=== PATIENT | female | born 1985 | race Caucasian/White ===

== ENCOUNTER 2018-01-03 22:25 | Inpatient (IN) | payer BC, SELFPAY ==
[2018-01-03 23:32] LABS: Amnisure Test RUPTURE DETECTED (No Rupture)
[2018-01-03 23:33] LABS: Amnisure Internal Control QC ACCEPTABLE (ACCEPTABLE)
--- NOTE | 2018-01-03 23:35 | ULT ---
LIMITED OB ULTRASOUND: HISTORY: A 32-year-old female with a history of a 22 week with possible cervical incompetence. FINDINGS: This is an incomplete examination. the cervix, as well as the amniotic fluid are evaluated. The amn iotic fluid index equals 12.4%. The cervical length approximates 3 cm. IMPRESSION: Cervical length 3 cm. Amniotic fluid index 12.4 cm. POS: [facility]
[2018-01-03 23:38] VITALS: BMI 27.2
[2018-01-04] MEDS ORDERED: Ampicillin 2 GM in Sodium Chloride 0.9% 100 ML IVPB SCH ×2 (00:12→09:00)
[2018-01-04] MEDS ORDERED: Promethazine HCl 25 MG/ML VIAL IM PRN (00:12)
[2018-01-04] MEDS ORDERED: Erythromycin 250 MG in Sodium Chloride 0.9% 250 ML 250 ML IVPB SCH (00:12)
[2018-01-04] MEDS ORDERED: Zolpidem Tartrate 5 MG TAB PO PRN (00:12)
[2018-01-04] MEDS ORDERED: Acetaminophen 325 MG TAB PO PRN (00:12)
[2018-01-04] MEDS ORDERED: Azithromycin 250 MG TAB PO SCH ×2 (00:45→03:15)
--- NOTE | 2018-01-04 00:55 | HP ---
REASON FOR ADMISSION: 22-week gestation with probable pre-labor rupture of membranes. HISTORY OF PRESENT ILLNESS: Ms. Hanna is a 32-year-old 1, para 0 at 22 weeks today who pres ents with a report of gush of fluid earlier in the evening. She has not had continued leakage of flu id. Of note, the patient has been noted to have a beaking cervix. Has been followed by [place] [facility]. Her cervix is 3 cm long and she was placed on Crinone gel. She reports an active fetus. OBSTETRIC AND GYNECOLOGIC HISTORY: No history of cervical surgery. 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 PAST MEDICAL HISTORY: None. PAST SURGICAL HISTORY: Breast augmentation. ALLERGIES: Denies. MEDICATIONS: vitamin and Crinone gel. SOCIAL HISTORY: Denies tobacco, alcohol, or drug abuse. FAMILY HISTORY: Noncontributory. REVIEW OF SYSTEMS: Noncontributory. PHYSICAL EXAMINATION: GENERAL: White female in no acute distress. VITAL SIGNS: Temperature 97.8, respirations 18, blood pressure 118/72. HEENT: Within normal limits. LUNGS: Clear to auscultation bilaterally. HEART: Regular rate and rhythm. ABDOMEN: Soft, nontender. Fundal height 22 cm. FHTs 130s to 140s. PELVIC: Vulva without lesions. Vagina, the patient initially had a large amount of progesterone gel carrier in the vagina. This was swabbed off. There was no telescoping of membranes. No fluid coul d be expressed with the patient coughing or Valsalva. It did look slightly moist in the external cer vical os. AmniSure was collected from this location. Digitally, the cervix was noted to be closed, but soft. EXTREMITIES: Without clubbing, cyanosis, or edema. Ultrasound revealed a cervix approximately 3 cm in length with amniotic fluid index of 12.4. Transve rse presentation was noted. AmniSure is positive for rupture of membranes. All other labs are pendi ng. IMPRESSION: 22-week and 1-day previable with rupture of membranes with shortening of cervi x, have not been followed for approximately the past month. PLAN: Discussed with the patient and Dr. Zapata options and current recommendations. Plan would be, 1. Admission with serial temperatures, FHTs, and every two-day ultrasounds for amniotic fluid along with pad counts. 2. Considering ACOG's current position on antibiotics and previable prelabor rupture of membranes, w chary will start the patient on ampicillin and erythromycin IV for 48 hours and then switch to amoxicilli n and erythromycin for another 5 days. 3. No recommendation for corticosteroids or magnesium sulfate for neuro protection at this time. 4. Considering that there is not significant vaginal discharge concerning for high bacteria counts s uch as what would be seen with bacterial vaginosis and no obvious leaking of fluid, I think that cont inuing the Crinone 8% gel is not unreasonable. The patient has her own supply. We will continue margarito t nightly during hospitalization as it may help to maintain cervical collagen structure if rupture of membrane reseals. 5. Plan on keeping the patient in the hospital at least for 23 weeks and we will discuss with Matern al Medicine in the intervening time as to whether or not transfer for higher level of care at 2 3 weeks would be justified. 6. We have discussed with the patient the possibility of false positive AmniSure. While the sensiti vity and specificity of AmniSure is high, there are also literatures showing significant false positi ves in patients with labor at or near term. How this translates to positive results at 22 weeks' ges tation is unknown.
[2018-01-04 02:18] LABS: #Basophils 0.1 thou/uL (0.0-0.2); #Eosinphils 0.1 thou/uL (0.0-0.7); #Lymphocytes 2.4 thou/uL (1.20-3.40); #Monocytes 0.6 thou/uL (0.11-0.59); #Neutrophils 6.5 thou/uL (1.40-6.50); %Lymphocytes 24.3 % (21.0-51.0); %Monocytes 6.4 % (0.0-10.0); %Neutrophils 67.3 % (42.0-75.0); Hemoglobin 12.9 g/dL (12.0-16.0); Mean Corpuscular HGB CONC 33.3 g/dL (32.0-36.0); Mean Corpuscular Hemoglobin 31.3 pg (27.0-31.0); Mean Corpuscular Volume 94.1 fl (81.0-99.0); Mean Platelet Volume 7.1 fL (7.4-10.4); Platelet Count 279 thou/uL (130-400); RBC Distribution Width 11.5 % (11.5-14.5); Red Blood Cell (RBC) Count 4.11 mill/uL (4.20-5.40); White Blood Cell (WBC) Count 9.7 thou/uL (4.8-10.8)
[2018-01-04 02:54] LABS: HBSAg Index 0.15 S/CO (0-0.99); Hep B Surf Ag Non-Reactive S/CO (NonReactive)
[2018-01-04] MEDS: Ampicillin 2 GM in Sodium Chloride 0.9% 100 ML IVPB SCH ×4 (03:42→20:41)
[2018-01-04 05:09] LABS: Syphilis Antibody Nonreactive (Nonreactive); Syphilis Antibody Index 0.04 S/CO (<1.00 Non-Reactive)
--- NOTE | 2018-01-04 07:38 | PRG ---
DATE OF SERVICE: 01/04/2018 TIME OF SERVICE: 0700 HISTORY OF PRESENT ILLNESS: The patient subjectively complains only of a small amount of fluid that was leaked on a pad and shown to the nurse. OBJECTIVE EXAMINATION: VITAL SIGNS: Temperature 97.9, pulse 67, respirations 16, blood pressure 106/66. HEENT: Within normal limits. LUNGS: Clear to auscultation bilaterally. HEART: Regular rate and rhythm. ABDOMEN: Soft and nontender. FHTs are 150s. PELVIC: Vulva is without lesions. No obvious vaginal discharge or bleeding noted. EXTREMITIES: Without clubbing, cyanosis or edema. IMPRESSION: PT ROM at 22 and 1 weeks gestation. PLAN: Prophylactic antibiotics for latency with PT ROM. Continue hospital observation, serial ultra sounds and continue progesterone. We will repeat sono for EFW and NICO on 01/05/2018. We will contin ue progesterone suppositories at this time and discuss progesterone, antibiotics, and other therapy a s well as possible transfer at 23 weeks with [facility] maternal medicine today. We will have patient seen by Neonatology today as well too.
[2018-01-04] MEDS: Docusate 100 MG CAP PO SCH ×2 (08:34→20:41)
--- NOTE | 2018-01-04 13:24 | PRG ---
DATE OF SERVICE: 01/04/2018 TIME OF SERVICE: 1300 Update for conversation and treatment plan after discussing with Maternal Medicine. I spoke on telephone with Dr. Radha Riley at [facility] about the patient's diagnos is and care plan. Dr. Riley felt our current care plan was reasonable. She felt that the patient would be also well served by allowing for discharge home in the interval between previability and vi ability after receiving her initial 48 hours of IV antibiotics. I discussed this with the patient. The patient was very comfortable with this. Dr. Riley also agreed with the patient being admitted to [facility] at 23 weeks gestation. The plan will be to discharge the patient home on morning 01/06/2018 and continuing her oral antibiotics through the weekend. We will readmit the patient on Wednesday01/10/2018 and plan transfer at 23 weeks gestation to [facility] secondary to prolonged rupture of membranes. We w ill discuss this change in care plan with OB Hospitalist that is on today, Dr. Samano, as well as wi Dr. Viktoriya Zapata.
[2018-01-05] MEDS: Ampicillin 2 GM in Sodium Chloride 0.9% 100 ML IVPB SCH ×4 (03:51→20:46)
--- NOTE | 2018-01-05 09:27 | ULT ---
OBSTETRIC SONOGRAM COMPLETE: HISTORY: Premature rupture of membranes. Incompetent cervix. COMPARISON: 01/03/18. FINDINGS: Multiple transabdominal sonographic views of the gravid uterus show a single intrauterine gestation i n transverse presentation with head to the maternal left. Cervix is 4.1 cm length with fluid b ulging into the cervical canal. Grade I placenta is anterior. Four-chamber heart shows motion at 15 7 b.p.m. Three-vessel cord shows a normal insertion. No gross intracranial abnormalities are demons trated. Amniotic fluid index is 11.0. Measurements are as follows: Biparietal diameter 22 weeks 0 days Head circumference 22 weeks 5 days Abdominal circumference 22 weeks 5 days Femur length 22 weeks 1 day Hadlock percentile is 53%. Estimated weight 1 pound 2 ounces (507 grams). IMPRESSION: 1. Single viable intrauterine gestation with estimated gestational age based on today's sonogram of 22 weeks 3 days. 2. Amniotic fluid index is 11.0. 3. Cervical length is within normal limits, although fluid is seen to bulge into the cervical canal. POS: [facility]
--- NOTE | 2018-01-05 10:47 | PDOC.EVN ---
Event Note - Event Note Event Note: 01/05/18 @ 10:30-10:45 Location: Room 304 OBGYN inbound call center representative 22 weeks 3 days S - Doing well, resting in bed O - Vitals: afibrile, pulse 70's, bp 90/50's, Ultrasound this morning = + cardiac motion, normal NL cervical length, fluid 11 cm PE: in general: lying in bed, no acute distress. Pelvic exam deferred. A - 22 weeks and 3 days suspected pprom. Currently on IV amp, status post zmax oral x1. P - detailed information given to her regarding EGA and plan of care. Using a due date of 05/09/18. Switch to oral antibiotics 01/06/18 and send home 01/06/18 on continued antibiotics. Will start steroids at 23 weeks. It is possible to have in patient observation or out-patient follow-up based on what the condition looks like at that time. Has mfm appointment.
[2018-01-05] MEDS: Docusate 100 MG CAP PO SCH ×2 (10:49→20:47)
--- NOTE | 2018-01-05 14:11 | PDOC.EVN ---
Event Note - Event Note Event Note: @1400: Asked to review with the patient's the plan of care. Bedside visit done from [id number]. Q&A done.
--- NOTE | 2018-01-05 17:44 | PDOC.EVN ---
Event Note - Event Note Event Note: PATIENT WOULD LIKE SOMETHING PROPHYLACTICALLY FOR VAGINAL YEAST INFECTION SHE WILL BE ON PROLONGED (7 DAYS) ANTIBIOTICS. Diflucan has warning due to QT interval with Zmax. I have ordered miconazole cream to vagina PRN only if needed.
[2018-01-05] MEDS: Miconazole 2% Cream 30 GM TUBE TOP SCH (20:48)
[2018-01-06] MEDS ORDERED: Erythromycin Base 250 MG TAB PO SCH (06:00)
--- NOTE | 2018-01-06 06:21 | PDOC.EVN ---
Event Note - Event Note Event Note: DISCHARGE NOTE Location: Room 304 Admission: 01/03/18 Discharge Date: 01/06/18 DX: 22-23 week gestation Suspected pre-labor ROM Course: This patient sees Dr Benny AlbertsViktoriya) for care. She presented with Dr Lambert on 01/04 with suspected PPROM. Amnisure was positive. Exam limited by use of progesterone vaginally. Cervical length on admit was over 3 cm with NICO of 11- 12. Repeat sono for NICO was completed 01/05 with NICO stable at 11 and normal cervical length above 4. She was started on IV amp and Zmax (out of Erythro). The original plan was for discharge on Thrusday 01/06 with outpatient oral medication (amoxcillin) for 5 days and a redose x1 of Zmax prior to her discharge. There was no evidence of PTL during her stay and she remained afebrile. Follow up: She will return at 23 weeks and 0 days (approx wednesday) fo steroids. If cervical length remains above 3cm with normal NICO, lthere is no indication for transfer to [place] as no care in management would occur. Home with limited activity. No sexual activity (vaginal intercourse). Details given to her by me. Patient seen on 01/06/18 prior to discharge. Vitals reviewed...afebrile. Normotensive. No VB. No Contractions.
[2018-01-06] MEDS ORDERED: Azithromycin 250 MG TAB PO SCH (07:00)
[2018-01-06] MEDS: Docusate 100 MG CAP PO SCH (08:16)
[2018-01-06] MEDS: Miconazole 2% Cream 30 GM TUBE TOP SCH (08:17)
[2018-01-06 08:54] VITALS: TEMP 97.8
[2018-01-06] MEDS ORDERED: AMOXicillin 250 MG CAP PO SCH (09:00)
[2018-01-06 09:34] VITALS: BP 107/58
[2018-01-09] MEDS ORDERED: Azithromycin 250 MG TAB PO SCH (09:00)
== END 2018-01-06 09:20 | disposition home or self-care (01) | DRG 781 ==
LOC: L&D/OP 22:25 → L&D 23:47 → 3SE 01-04 02:09
PROVIDERS: ADMIT Obstetrics & Gynecology; ATTEND Family Medicine
DX: O42.912 Preterm premature rupture of membranes, unspecified as to length of time between rupture and onset of labor, second trimester (principal); O98.812 Other maternal infectious and parasitic diseases complicating pregnancy, second trimester; Z3A.22 22 weeks gestation of pregnancy; B37.3 Candidiasis of vulva and vagina
CPT/HCPCS: 76805; 76815; 84112; 85025; 86780; 87340; 99285; A4216; J0290; J1364; J7050

== ENCOUNTER 2018-01-10 13:59 | Day surgery (SDC) | payer BC ==
[2018-01-10 14:41] VITALS: BMI 26.9
[2018-01-10 14:49] VITALS: BP 116/70; TEMP 98.4
== END 2018-01-10 17:10 | disposition home or self-care (01) ==
LOC: L&D/OP 13:59
PROVIDERS: ATTEND Family Medicine
DX: O26.872 Cervical shortening, second trimester; Z98.890 Other specified postprocedural states; O42.912 Preterm premature rupture of membranes, unspecified as to length of time between rupture and onset of labor, second trimester; Z3A.22 22 weeks gestation of pregnancy
CPT/HCPCS: 76816; 99282

== ENCOUNTER 2018-04-17 01:35 | Inpatient (IN) | payer BC ==
[2018-04-17 02:14] VITALS: BMI 32.1
[2018-04-17 02:35] LABS: Amnisure Test RUPTURE DETECTED (No Rupture)
[2018-04-17 02:39] LABS: Amnisure Internal Control QC ACCEPTABLE (ACCEPTABLE)
[2018-04-17] MEDS: Lactated Ringer's 1,000 ML IV SCH ×2 (03:00→08:51)
[2018-04-17] MEDS ORDERED: Acetaminophen 500 MG TAB PO PRN (03:13)
[2018-04-17] MEDS ORDERED: Ondansetron HCl/PF 4 MG/2 ML Vial IVP PRN ×3 (03:13→15:59)
[2018-04-17] MEDS ORDERED: Promethazine HCl 25 MG/ML VIAL IM PRN ×2 (03:13→12:23)
[2018-04-17] MEDS ORDERED: Butorphanol Tartrate 1 MG/ML VIAL SLOW IVP PRN (03:13)
[2018-04-17] MEDS ORDERED: Ibuprofen 800 MG TAB PO PRN (03:15)
[2018-04-17] MEDS ORDERED: Methylergonovine 0.2 MG/ML VIAL IM PRN (03:15)
[2018-04-17] MEDS ORDERED: Lidocaine 1% (PF) 30 ML VIAL SC PRN (03:15)
[2018-04-17] MEDS ORDERED: Misoprostol 200 MCG TAB RC PRN (03:15)
[2018-04-17] MEDS ORDERED: Carboprost 250 MCG/ML AMP IM PRN (03:15)
[2018-04-17] MEDS ORDERED: HYDROcodone/Acetaminophen 5/325 mg Tablet PO PRN ×3 (03:15→15:59)
[2018-04-17] MEDS ORDERED: NS w/ Oxytocin 10 units 500 ML IV SCH ×2 (03:15)
[2018-04-17] MEDS ORDERED: NS / Oxytocin 40 units/1000ml 1,000 ML IV SCH ×2 (03:15→15:59)
[2018-04-17 03:27] LABS: Hemoglobin 12.5 g/dL (12.0-16.0); Mean Corpuscular HGB CONC 36.2 g/dL (32.0-36.0); Mean Corpuscular Hemoglobin 32.9 pg (27.0-31.0); Mean Corpuscular Volume 90.9 fL (78.0-98.0); Mean Platelet Volume 6.9 fL (7.4-10.4); Platelet Count 271 thou/uL (130-400); RBC Distribution Width 11.6 % (11.5-14.5); Red Blood Cell (RBC) Count 3.79 mill/uL (4.20-5.40); White Blood Cell (WBC) Count 8.3 thou/uL (4.8-10.8)
[2018-04-17 04:29] LABS: HBSAg Index 0.16 S/CO (0-0.99); HIV (1/2) Antibody/Antigen Non-Reactive (NonReactive); HIV 1/2 INDEX 0.09 S/CO (<1.00); Hep B Surf Ag Non-Reactive S/CO (NonReactive)
[2018-04-17] MEDS ORDERED: DISCONTINUE ALL PREVIOUS NARCOTICS FS SCH (07:00)
[2018-04-17] MEDS ORDERED: Bupivacaine 0.75% 13.4 ML, fentaNYL Citrate/PF 400 MCG in Sodium Chloride 0.9% 78.6 ML EPIDURAL SCH (07:00)
[2018-04-17] MEDS ORDERED: Lidocaine HCl/Epinephrine 5 ML AMPUL IJ ONE (08:56)
[2018-04-17 10:44] LABS: Syphilis Antibody Nonreactive (Nonreactive); Syphilis Antibody Index 0.03 S/CO (<1.00 Non-Reactive)
[2018-04-17] MEDS ORDERED: Naloxone HCl 0.4 mg/ml Vial IVP PRN ×2 (12:23)
[2018-04-17] MEDS ORDERED: Acetaminophen 325 MG TAB PO PRN (12:23)
[2018-04-17] MEDS ORDERED: Eucerin (Mineral Oil/Petrolatum,White) 30 gm Jar TOP PRN (12:23)
[2018-04-17] MEDS ORDERED: Lactated Ringer's 500 ML IV PRN (12:23)
[2018-04-17] MEDS ORDERED: ePHEDrine/0.9% NaCl/PF SYRINGE 50 mg/10 ml SLOW IVP PRN (12:23)
[2018-04-17] MEDS ORDERED: diphenhydrAMINE 50 MG/ML VIAL IVP PRN (12:23)
[2018-04-17] MEDS ORDERED: fentaNYL Citrate/PF 400 MCG, Bupivacaine 0.5% 20 ML in Sodium Chloride 0.9% 72 ML EPIDURAL SCH (12:30)
[2018-04-17] MEDS ORDERED: Communication Order-Pharmacy FS SCH (12:30)
[2018-04-17] MEDS ORDERED: Bisacodyl 10 MG SUPP PR PRN (15:59)
[2018-04-17] MEDS ORDERED: Acetaminophen/Codeine 30-300mg Tablet PO PRN (15:59)
[2018-04-17] MEDS ORDERED: diphenhydrAMINE 25 MG CAP PO PRN (15:59)
[2018-04-17] MEDS ORDERED: Lanolin Ointment 7 GM TUBE TOP PRN (15:59)
[2018-04-17] MEDS ORDERED: Preparation H Ointment 28 GM TUBE PR PRN (15:59)
[2018-04-17] MEDS ORDERED: Milk Of Magnesia 30 ML UDCUP PO PRN (15:59)
[2018-04-17] MEDS ORDERED: Docusate Calcium (SURFAK) 240 MG CAP PO SCH (16:15)
[2018-04-17] MEDS ORDERED: Prenatal Vitamin 1 TAB PO SCH (16:15)
[2018-04-17] MEDS: Ibuprofen 800 MG TAB PO SCH ×2 (19:57→21:57)
[2018-04-17] MEDS: Ferrous Sulfate 325 MG TAB PO SCH (19:57)
[2018-04-17] MEDS: Docusate Calcium (SURFAK) 240 MG CAP PO SCH (21:57)
[2018-04-18] MEDS: Ibuprofen 800 MG TAB PO SCH ×3 (06:35→21:31)
[2018-04-18] MEDS: Ferrous Sulfate 325 MG TAB PO SCH ×2 (08:03→17:13)
[2018-04-18] MEDS: Docusate Calcium (SURFAK) 240 MG CAP PO SCH ×2 (10:27→21:32)
[2018-04-18] MEDS: Prenatal Vitamin 1 TAB PO SCH (10:28)
[2018-04-18] MEDS ORDERED: Sodium Chloride 0.9% (PF) 10 ML VIAL ONE (10:31)
[2018-04-18] MEDS ORDERED: Lidocaine 2% MPF 10 ML AMP (For Epidural Use) ONE (10:31)
[2018-04-18] MEDS ORDERED: Bupivacaine 0.25% HCL 30 ML VIAL ONE (10:31)
[2018-04-19] MEDS: Ibuprofen 800 MG TAB PO SCH ×2 (05:33→13:15)
[2018-04-19 08:36] VITALS: BP 114/73; TEMP 98.1
[2018-04-19] MEDS: Ferrous Sulfate 325 MG TAB PO SCH (08:44)
[2018-04-19] MEDS: Docusate Calcium (SURFAK) 240 MG CAP PO SCH (08:44)
[2018-04-19] MEDS: Prenatal Vitamin 1 TAB PO SCH (08:44)
== END 2018-04-19 14:30 | disposition home or self-care (01) | DRG 775 ==
LOC: L&D/OP 01:35 → L&D 03:03 → 3SE 18:31 → 3SW 04-18 08:58
PROVIDERS: ADMIT Family Medicine; ATTEND Family Medicine
PROC: 10E0XZZ Delivery of Products of Conception, External Approach (ICD-10-PCS; principal; 2018-04-17)
DX: O80 Encounter for full-term uncomplicated delivery (principal); Z3A.39 39 weeks gestation of pregnancy; Z37.0 Single live birth
CPT/HCPCS: 51702; 84112; 85027; 86780; 86850; 86900; 86901; 87340; 87389; 99285; J2001; J2405; J2550; J3010; J3490; J7050; S0020